=== PATIENT | male | born 1970 | race Hispanic/Latino ===

== ENCOUNTER → 2025-07-12 | Day surgery (SDC) | payer OTHER ==
[~2025-07-12] MED LIST: DIOVAN80 MG PO; FLUOXETINE HCL20 M1 PO; GLUCAGON FOR INJ 1 MG VIAL ONE; LABETALOL HCL 20 ML ONE; LACTATED RINGER'S 1,000 ML ONE; LIDOCAINE HCL 2% LOCAL INJ 5 ML SDV VIAL INJ ONE; MIDAZOLAM HCL 2 MG/2 ML VIAL ONE; NEXIUM40 MG PO; PROPOFOL IV EMULSION 10 MG/ML 20 ML VIAL ONE
[2025-07-12 10:10] VITALS: TEMP 97.3
[2025-07-12 10:30] VITALS: BP 130/91; PULSE 85; RESP 18; O2SAT 99
== END | disposition home or self-care (01) ==
LOC: OR 07:22
PROVIDERS: ATTEND Internal Medicine Gastroenterology
DX: Z12.11 Encounter for screening for malignant neoplasm of colon (principal); D12.4 Benign neoplasm of descending colon; K57.30 Diverticulosis of large intestine without perforation or abscess without bleeding; K64.8 Other hemorrhoids; K21.9 Gastro-esophageal reflux disease without esophagitis; I10 Essential (primary) hypertension; I25.10 Atherosclerotic heart disease of native coronary artery without angina pectoris; R00.1 Bradycardia, unspecified; E66.01 Morbid (severe) obesity due to excess calories; F41.9 Anxiety disorder, unspecified; Z86.19 Personal history of other infectious and parasitic diseases; Z01.810 Encounter for preprocedural cardiovascular examination; Z79.899 Other long term (current) drug therapy
CPT/HCPCS: 45385; 93005; J1610; J2003; J2250; J2704; J3490; J7121; 45378